=== PATIENT | male | born 1955 | race Caucasian/White ===

== ENCOUNTER 2021-06-04 12:55 | Outpatient (CLI) | payer OTHER ==
[~2021-06-04 12:55] MED LIST: SIMVASTA PO; VALSARTAN-HCTZ1 EAC1 PO
== END 2021-06-04 13:17 | disposition home or self-care (01) ==
LOC: SONOGRAMA 12:55
PROVIDERS: ATTEND Specialist
DX: D21.22 Benign neoplasm of connective and other soft tissue of left lower limb, including hip (principal); R07.89 Other chest pain

== ENCOUNTER 2021-06-06 05:10 | Day surgery (SDC) | payer OTHER | END 2021-06-06 16:05 | disposition home or self-care (01) | LOC: CIR.AMB 05:10 | PROVIDERS: ATTEND Specialist | DX: L72.0 Epidermal cyst (principal); Z20.822 Contact with and (suspected) exposure to COVID-19 ==